=== PATIENT | male | born 1955 | race African-American/Black ===

== ENCOUNTER 2016-10-04 22:00 | Emergency (ER) | payer OTHER, MEDICAID ==
[~2016-10-04] VITALS: Ht 167.6 cm; Wt 99.0 kg
[2016-10-04 23:14] LABS: BASOPHILS % 0.7 % (0.0-2.0); EOSINOPHILS % 2.2 % (0.0-5.0); HEMATOCRIT. 40.9 % (42.0-52.0); HEMOGLOBIN. 13.9 g/dL (14.0-18.0); LYMPHOCYTES % 17.5 % (20.0-50.0); MEAN CORPUSCULAR HEMOGLOBIN 30.5 pg (28.0-32.0); MEAN CORPUSCULAR VOLUME 89.6 fL (80.0-94.0); MEAN PLATELET VOLUME 6.3 fl (7.4-10.4); MONOCYTES % 7.7 % (2.0-8.0); NEUTROPHILS % 71.9 % (40.0-76.0); PLATELET 237 x1000/uL (130-400); RED BLOOD CELL COUNT 4.56 mill/uL (4.7-6.1); RED CELL DISTRIBUTION WIDTH 14.8 % (11.6-14.6); WHITE BLOOD COUNT 11.4 x1000/uL (4.5-11.0)
[2016-10-04 23:17] LABS: CHLORIDE 107 mEq/L (98-107); INDEX HEMOLYSI 1 (1-3); INDEX ICTERIC 1 (1-4); INDEX LIPEMIC 1 (1-3)
[2016-10-04 23:20] LABS: ALBUMIN 3.6 g/dL (3.4-5.0); ANION GAP 14; CALCIUM 8.5 mg/dL (8.5-10.1); CARBON DIOXIDE 26 mEq/L (21-32); PARTIAL THROMBOPLASTIN TIME 26.4 sec (24.0-34.0); PROTHROMBIN TIME 10.8 sec; UREA NITROGEN BLOOD 11 mg/dL (7-21)
[2016-10-04 23:25] LABS: ALANINE AMINOTRANSFERASE 24 IU/L (13-61); eGFR > 60 mL/min (>60)
[2016-10-05 01:34] VITALS: BP 148/86
== END 2016-10-05 01:35 | disposition home or self-care (01) ==
LOC: ER 22:00
DX: R55 Syncope and collapse (principal); I10 Essential (primary) hypertension; F17.200 Nicotine dependence, unspecified, uncomplicated; Z86.73 Personal history of transient ischemic attack (TIA), and cerebral infarction without residual deficits
CPT/HCPCS: 36415; 70450; 71010; 80053; 85025; 85610; 85730; 93005; 99285

== ENCOUNTER 2021-08-08 00:22 | Inpatient (IN) | payer OTHER ==
[~2021-08-08] VITALS: Ht 167.6 cm; Wt 113.4 kg
[2021-08-08 01:38] LABS: HEMATOCRIT 34.7 % (42.0-52.0); HEMOGLOBIN 10.5 g/dL (14.0-18.0); MEAN CORPUSCULAR HEMOGLOBIN 20.7 pg (28.0-32.0); MEAN CORPUSCULAR VOLUME 68.6 fL (80.0-94.0); PLATELET 247 x1000/uL (130-400); RED BLOOD CELL COUNT 5.07 mill/uL (4.7-6.1); RED CELL DISTRIBUTION WIDTH 21.9 % (11.6-14.6)
[2021-08-08] MEDS ORDERED: DEXTROSE 50% WATER 50ML SYRINGE IV ONE (01:45)
[2021-08-08 01:46] LABS: CHLORIDE 103 mEq/L (98-107)
[2021-08-08] MEDS ORDERED: ZOLPIDEM TARTRATE 5MG TABLET PO PRN (06:45)
[2021-08-08] MEDS ORDERED: CLONIDINE 0.1MG TABLET PO PRN (06:45)
[2021-08-08] MEDS ORDERED: ONDANSETRON HCL 4MG/2ML INJ IV PRN (06:45)
[2021-08-08] MEDS ORDERED: DOCUSATE SODIUM 100MG CAPSULE PO PRN (06:45)
[2021-08-08] MEDS ORDERED: ENOXAPARIN 40MG/0.4ML SYR SUBCUT SCH (06:45)
[2021-08-08] MEDS ORDERED: MAGNESIUM/ALUMINUM HYDROXIDE/SIMETHICONE 30ML UDC PO PRN (06:45)
[2021-08-08] MEDS ORDERED: NITROGLYCERIN 0.4MG TABLET SL SL PRN (06:45)
[2021-08-08] MEDS ORDERED: GUAIFENESIN 200MG/10ML SUGAR FREE UDC PO PRN (06:45)
[2021-08-08] MEDS ORDERED: KETOROLAC 30MG/ML VIAL IV PRN (06:45)
[2021-08-08] MEDS ORDERED: ACETAMINOPHEN 325MG TABLET PO PRN ×2 (06:45)
[2021-08-08] MEDS ORDERED: DEXTROSE 50% WATER 50ML SYRINGE IV PRN (07:15)
[2021-08-08 08:12] LABS: *AMPHETAMINES SCREEN URINE NEGATIVE (NEGATIVE); *BARBITURATES SCREEN URINE NEGATIVE (NEGATIVE); *BENZODIAZEPINES SCREEN URINE NEGATIVE (NEGATIVE); *COCAINE SCREEN URINE NEGATIVE (NEGATIVE); CANNABINOID URINE SCREEN NEGATIVE (NEGATIVE); METHADONE URINE SCREEN NEGATIVE (NEGATIVE); OPIATES URINE SCREEN NEGATIVE (NEGATIVE); PHENCYCLIDINE URINE SCREEN NEGATIVE (NEGATIVE)
[2021-08-08 08:34] LABS: T4 FREE 0.95 ng/dL (0.76-1.46)
[2021-08-08] MEDS: ASPIRIN 325MG EC TABLET PO SCH (08:41)
[2021-08-08] MEDS: FAMOTIDINE 20MG TABLET PO SCH ×2 (08:41→20:32)
[2021-08-08] MEDS: ENOXAPARIN 30MG/0.3ML SYR SUBCUT SCH ×2 (09:00→20:33)
[2021-08-08] MEDS: BLOOD SUGAR DIAGNOSTIC STRIP TEST SCH ×3 (11:18→20:31)
[2021-08-08] MEDS: INSULIN LISPRO 100 UNITS/ML SUBCUT SCH ×3 (11:18→20:31)
[2021-08-08] MEDS: IPRATROPIUM/ALBUTEROL 0.5-3(2.5)MG/3ML NEB NEB PRN (11:20)
[2021-08-08 15:00] VITALS: BP 147/72
[2021-08-08 20:00] VITALS: BP 136/73
[2021-08-08] MEDS ORDERED: INSU100C6 SQ ×2 (21:44)
[2021-08-08] MEDS ORDERED: ALBU90AE INH (21:44)
[2021-08-08] MEDS ORDERED: OMEP20CA14 MT (21:44)
[2021-08-08] MEDS ORDERED: AMLO10TA80 MT (21:44)
[2021-08-08] MEDS ORDERED: MOME0.24 INH (21:44)
[2021-08-08] MEDS ORDERED: FLUT15.844 BOTHNSTRLS (21:44)
[2021-08-08] MEDS ORDERED: PIOG15TA68 PO (21:44)
[2021-08-08] MEDS ORDERED: ALBU05 IH (21:44)
[2021-08-08] MEDS: KETOROLAC 15MG/ML VIAL IV PRN (22:27)
[2021-08-09] VITALS: BP 142/73
[2021-08-09 04:00] VITALS: BP 159/75
[2021-08-09] MEDS: KETOROLAC 15MG/ML VIAL IV PRN (05:32)
[2021-08-09] MEDS: BLOOD SUGAR DIAGNOSTIC STRIP TEST SCH ×4 (05:32→21:18)
[2021-08-09] MEDS: INSULIN LISPRO 100 UNITS/ML SUBCUT SCH ×4 (05:32→21:00)
[2021-08-09 06:10] LABS: BASOPHILS % 1.4 % (0.0-2.0); EOSINOPHILS % 5.8 % (0.0-5.0); HEMATOCRIT. 38.1 % (42.0-52.0); HEMOGLOBIN. 11.4 g/dL (14.0-18.0); LYMPHOCYTES % 18.8 % (20.0-50.0); MEAN CORPUSCULAR VOLUME 70.1 fL (80.0-94.0); MEAN PLATELET VOLUME 8.2 fl (7.4-10.4); PLATELET 241 x1000/uL (130-400); RED BLOOD CELL COUNT 5.44 mill/uL (4.7-6.1); RED CELL DISTRIBUTION WIDTH 21.3 % (11.6-14.6)
[2021-08-09 06:35] LABS: CHLORIDE 100 mEq/L (98-107)
[2021-08-09 06:42] LABS: PHOSPHORUS 4.7 mg/dL (2.5-4.9)
[2021-08-09] MEDS ORDERED: DEXTROSE 50% WATER 50ML SYRINGE IV PRN (07:00)
[2021-08-09 08:00] VITALS: BP 119/72
[2021-08-09] MEDS: FAMOTIDINE 20MG TABLET PO SCH ×2 (09:27→21:24)
[2021-08-09] MEDS: ASPIRIN 325MG EC TABLET PO SCH (09:27)
[2021-08-09] MEDS: ENOXAPARIN 30MG/0.3ML SYR SUBCUT SCH ×2 (09:27→21:24)
[2021-08-09] MEDS ORDERED: FUROSEMIDE 40MG/4ML VIAL IVP SCH (14:00)
[2021-08-09 16:00] VITALS: BP 138/75
[2021-08-09] MEDS: SPIRONOLACTONE 25MG TABLET PO SCH (19:13)
[2021-08-09] MEDS: FUROSEMIDE 40MG/4ML VIAL IVP SCH (19:14)
[2021-08-09 20:00] VITALS: BP 115/73
[2021-08-10] VITALS: BP 152/80
[2021-08-10 04:00] VITALS: BP 150/74
[2021-08-10] MEDS: IPRATROPIUM/ALBUTEROL 0.5-3(2.5)MG/3ML NEB NEB PRN (04:52)
[2021-08-10] MEDS: SPIRONOLACTONE 25MG TABLET PO SCH ×2 (05:49→19:50)
[2021-08-10] MEDS: BLOOD SUGAR DIAGNOSTIC STRIP TEST SCH ×4 (05:49→20:59)
[2021-08-10] MEDS: FUROSEMIDE 40MG/4ML VIAL IVP SCH ×2 (05:49→19:49)
[2021-08-10] MEDS: INSULIN LISPRO 100 UNITS/ML SUBCUT SCH ×4 (05:50→20:58)
[2021-08-10 07:32] LABS: CHLORIDE 95 mEq/L (98-107)
[2021-08-10 07:40] LABS: BASOPHILS % 0.8 % (0.0-2.0); EOSINOPHILS % 6.8 % (0.0-5.0); HEMATOCRIT. 34.9 % (42.0-52.0); HEMOGLOBIN. 10.6 g/dL (14.0-18.0); LYMPHOCYTES % 14.4 % (20.0-50.0); MEAN CORPUSCULAR HEMOGLOBIN 21.1 pg (28.0-32.0); MEAN CORPUSCULAR VOLUME 69.1 fL (80.0-94.0); MEAN PLATELET VOLUME 8.2 fl (7.4-10.4); MONOCYTES % 11.5 % (2.0-8.0); NEUTROPHILS % 66.5 % (40.0-76.0); PLATELET 261 x1000/uL (130-400); RED BLOOD CELL COUNT 5.05 mill/uL (4.7-6.1); RED CELL DISTRIBUTION WIDTH 21.2 % (11.6-14.6)
[2021-08-10 07:41] LABS: PHOSPHORUS 4.6 mg/dL (2.5-4.9)
[2021-08-10 08:00] VITALS: BP 155/79
[2021-08-10] MEDS: ENOXAPARIN 30MG/0.3ML SYR SUBCUT SCH ×2 (11:22→20:58)
[2021-08-10] MEDS: ASPIRIN 325MG EC TABLET PO SCH (11:22)
[2021-08-10] MEDS: FAMOTIDINE 20MG TABLET PO SCH ×2 (11:22→20:58)
[2021-08-10 12:00] VITALS: BP 135/71
[2021-08-10 14:03] LABS: PLATELET ESTIMATE NORMAL
[2021-08-10 16:00] VITALS: BP 140/74
[2021-08-10 20:20] VITALS: BP 125/65
[2021-08-10] MEDS: KETOROLAC 15MG/ML VIAL IV PRN (20:57)
[2021-08-11 00:01] VITALS: BP 127/65
[2021-08-11] MEDS: SPIRONOLACTONE 25MG TABLET PO SCH (05:39)
[2021-08-11] MEDS: FUROSEMIDE 40MG/4ML VIAL IVP SCH (05:39)
[2021-08-11] MEDS: INSULIN LISPRO 100 UNITS/ML SUBCUT SCH (06:29)
[2021-08-11] MEDS: BLOOD SUGAR DIAGNOSTIC STRIP TEST SCH (06:29)
[2021-08-11 06:35] VITALS: BP 167/97
[2021-08-11 08:00] VITALS: BP 141/70
[2021-08-11] MEDS: FAMOTIDINE 20MG TABLET PO SCH (10:35)
[2021-08-11] MEDS: ENOXAPARIN 30MG/0.3ML SYR SUBCUT SCH (10:35)
[2021-08-11] MEDS: ASPIRIN 325MG EC TABLET PO SCH (10:35)
[2021-08-11 12:23] VITALS: BP 132/74
[2021-08-13 16:15] LABS: FOLIC ACID (FOLATE) SERUM 5.2 ng/mL (>5.38)
== END 2021-08-11 13:16 | disposition home or self-care (01) | DRG 622 ==
LOC: ER 00:22 → MICUSO 03:10 → 8WST 14:28
PROVIDERS: ADMIT Internal Medicine; ATTEND Internal Medicine
PROC: 0JBP0ZZ Excision of Left Lower Leg Subcutaneous Tissue and Fascia, Open Approach (ICD-10-PCS; principal; 2021-08-11)
PROC: 0JBN0ZZ Excision of Right Lower Leg Subcutaneous Tissue and Fascia, Open Approach (ICD-10-PCS; 2021-08-11)
DX: E11.649 Type 2 diabetes mellitus with hypoglycemia without coma (principal); G93.41 Metabolic encephalopathy; E44.0 Moderate protein-calorie malnutrition; Z68.41 Body mass index [BMI] 40.0-44.9, adult; I87.8 Other specified disorders of veins; Z86.73 Personal history of transient ischemic attack (TIA), and cerebral infarction without residual deficits; I10 Essential (primary) hypertension; D63.8 Anemia in other chronic diseases classified elsewhere; E66.9 Obesity, unspecified; E87.6 Hypokalemia; Z20.822 Contact with and (suspected) exposure to COVID-19; I50.9 Heart failure, unspecified; I11.0 Hypertensive heart disease with heart failure; Z79.4 Long term (current) use of insulin; Z88.8 Allergy status to other drugs, medicaments and biological substances
CPT/HCPCS: 36415; 71045; 80053; 80061; 80305; 82607; 82746; 82962; 83036; 83540; 83550; 83735; 83880; 84100; 84145; 84439; 84443; 85025; 85027; 87426; 93306; 93923; 93970; 94640; 97162; 97166; 99285; J1650; J1815; J1885; J1940

== ENCOUNTER 2022-04-11 01:34 | Inpatient (IN) | payer OTHER ==
[~2022-04-11] VITALS: Ht 167.6 cm; Wt 119.3 kg
[2022-04-11] VITALS (9 sets, daily range): BP systolic 142–167; BP diastolic 75–95
[~2022-04-11 01:34] MED LIST: ALBU05 IH; ALBU90AE INH; AMLO10TA80 MT; ATOR-2 PO; FLUT15.844 BOTHNSTRLS; HYDR25TA PO; INSU100C6 SQ; KETO5DRO7 OP; LOSA100T32 PO; MOME220A4 INH; OLOD4MIS2 IH; OMEP20CA14 MT; PIOG15TA68 PO
[2022-04-11] MEDS ORDERED: MAGNESIUM 2 G PREMIX 50 ML IV STA (01:38)
[2022-04-11] MEDS ORDERED: IPRATROPIUM BROMIDE (0.02%) 0.5MG/2.5ML NEB HHN STA (01:38)
[2022-04-11] MEDS ORDERED: METHYLPREDNISOLONE SOD SUCC 125 MG/2 ML VIAL IV STA (01:38)
[2022-04-11] MEDS ORDERED: ALBUTEROL (0.083%) 2.5MG/3ML NEB HHN STA (01:38)
[2022-04-11 02:11] LABS: HEMATOCRIT. 40.1 % (42.0-52.0); HEMOGLOBIN. 12.6 g/dL (14.0-18.0); MEAN CORPUSCULAR HEMOGLOBIN 23.7 pg (28.0-32.0); MEAN CORPUSCULAR VOLUME 75.5 fL (80.0-94.0); MEAN PLATELET VOLUME 6.8 fl (7.4-10.4); PLATELET 325 x1000/uL (130-400); RED BLOOD CELL COUNT 5.31 mill/uL (4.7-6.1); RED CELL DISTRIBUTION WIDTH 18.3 % (11.6-14.6)
[2022-04-11 05:37] LABS: CHLORIDE 94 mEq/L (98-107)
[2022-04-11 06:01] LABS: PLATELET ESTIMATE NORMAL
[2022-04-11 07:59] LABS: BG BASE EXCESS 4.5 mmol/L (-2.0-2.0); BG CARBOXYHEMOGLOBIN 1.4 % (0.5-1.5); BG DEOXYHEMOGLOBIN 2.2 % (0.0-5.0); BG METHEMOGLOBIN 0.3 % (0.0-1.5); BG OXYGEN SATURATION 97.8 % (92.0-98.5); BG OXYHEMOGLOBIN 96.1 % (94.0-97.0); BG PCO2 119.5 mmHg (35.0-45.0); BG PO2 122.9 mmHg (75.0-100.0); BG SAMPLE SITE RIGHT BRACHIAL; BG TOTAL HEMOGLOBIN 13.6 g/dL (12.0-18.0); BG VENT MODE MASK - BIPAP
[2022-04-11] MEDS ORDERED: IPRATROPIUM/ALBUTEROL 0.5-3(2.5)MG/3ML NEB HHN PRN (08:15)
[2022-04-11] MEDS ORDERED: METHYLPREDNISOLONE SOD SUCC 125 MG/2 ML VIAL IV NR (08:30)
[2022-04-11] MEDS: IPRATROPIUM/ALBUTEROL 0.5-3(2.5)MG/3ML NEB HHN SCH ×4 (08:42→23:52)
[2022-04-11 09:54] LABS: BG BASE EXCESS -2.1 mmol/L (-2.0-2.0); BG CARBOXYHEMOGLOBIN 1.1 % (0.5-1.5); BG DEOXYHEMOGLOBIN 1.1 % (0.0-5.0); BG FRACTION INSPIRED OXYGEN 40; BG HCO3 ACT 26.2 mmol/L (22.0-26.0); BG METHEMOGLOBIN 0.1 % (0.0-1.5); BG OXYGEN SATURATION 98.9 % (92.0-98.5); BG OXYHEMOGLOBIN 97.7 % (94.0-97.0); BG PCO2 60.8 mmHg (35.0-45.0); BG PH 7.252 (7.350-7.450); BG PO2 154.9 mmHg (75.0-100.0); BG SAMPLE SITE RIGHT BRACHIAL; BG TOTAL HEMOGLOBIN 13.3 g/dL (12.0-18.0); BG VENT MODE MASK - BIPAP
[2022-04-11] MEDS: METHYLPREDNISOLONE SOD SUCC 125 MG/2 ML VIAL IV SCH ×3 (13:35→21:04)
[2022-04-11] MEDS ORDERED: MAGNESIUM/ALUMINUM HYDROXIDE/SIMETHICONE 30ML UDC PO PRN (15:00)
[2022-04-11] MEDS ORDERED: ACETAMINOPHEN 325MG TABLET PO PRN (15:00)
[2022-04-11] MEDS ORDERED: ONDANSETRON HCL 4MG/2ML INJ IV PRN (15:00)
[2022-04-11] MEDS ORDERED: DEXTROSE 50% WATER 50ML SYRINGE IV PRN ×2 (15:00)
[2022-04-11] MEDS ORDERED: DIPHENHYDRAMINE 25MG CAPSULE PO PRN (15:00)
[2022-04-11] MEDS ORDERED: DOCUSATE SODIUM 100MG CAPSULE PO PRN (15:00)
[2022-04-11] MEDS ORDERED: HYDROCODONE/ACETAMINOPHEN 5/325MG TABLET PO PRN (15:00)
[2022-04-11] MEDS ORDERED: CLONIDINE 0.1MG TABLET PO PRN (15:00)
[2022-04-11] MEDS: AMLODIPINE 10MG TABLET PO SCH (15:46)
[2022-04-11] MEDS: ENOXAPARIN 40MG/0.4ML SYR SUBCUT SCH (15:46)
[2022-04-11] MEDS: BLOOD SUGAR DIAGNOSTIC STRIP TEST SCH ×2 (17:30→21:03)
[2022-04-11] MEDS: INSULIN LISPRO 100 UNITS/ML SUBCUT SCH ×2 (17:39→21:04)
[2022-04-11] MEDS: GUAIFENESIN 600MG ER TABLET PO SCH (21:03)
[2022-04-11] MEDS: ATORVASTATIN CALCIUM 40MG TABLET PO SCH (21:03)
[2022-04-11 21:59] LABS: CLARITY URINE CLEAR (CLEAR); COLOR URINE YELLOW (YELLOW); KETONES URINE TRACE (NEGATIVE); LEUKOCYTE ESTERASE URINE NEGATIVE (NEGATIVE); NITRITE URINE NEGATIVE (NEGATIVE); OCCULT BLOOD URINE NEGATIVE (NEGATIVE); PH URINE 6.5 (4.5-8.0); PROTEIN URINE TRACE (NEGATIVE); SPECIFIC GRAVITY URINE 1.015 (1.005-1.030)
[2022-04-11 22:27] LABS: *AMPHETAMINES SCREEN URINE NEGATIVE (NEGATIVE); *BARBITURATES SCREEN URINE NEGATIVE (NEGATIVE); *BENZODIAZEPINES SCREEN URINE NEGATIVE (NEGATIVE); *COCAINE SCREEN URINE NEGATIVE (NEGATIVE); CANNABINOID URINE SCREEN NEGATIVE (NEGATIVE); METHADONE URINE SCREEN NEGATIVE (NEGATIVE); OPIATES URINE SCREEN NEGATIVE (NEGATIVE); PHENCYCLIDINE URINE SCREEN NEGATIVE (NEGATIVE)
[2022-04-12] VITALS (20 sets, daily range): BP systolic 123–164; BP diastolic 69–139
[2022-04-12] MEDS: IPRATROPIUM/ALBUTEROL 0.5-3(2.5)MG/3ML NEB HHN SCH ×5 (03:58→20:32)
[2022-04-12] MEDS: METHYLPREDNISOLONE SOD SUCC 125 MG/2 ML VIAL IV SCH ×3 (06:00→21:19)
[2022-04-12] MEDS: ENOXAPARIN 40MG/0.4ML SYR SUBCUT SCH (06:05)
[2022-04-12 06:40] LABS: HEMATOCRIT. 33.7 % (42.0-52.0); HEMOGLOBIN. 10.5 g/dL (14.0-18.0); MEAN CORPUSCULAR HEMOGLOBIN 23.5 pg (28.0-32.0); MEAN CORPUSCULAR VOLUME 75.4 fL (80.0-94.0); MEAN PLATELET VOLUME 6.9 fl (7.4-10.4); PLATELET 262 x1000/uL (130-400); RED BLOOD CELL COUNT 4.47 mill/uL (4.7-6.1); RED CELL DISTRIBUTION WIDTH 17.8 % (11.6-14.6)
[2022-04-12] MEDS: BLOOD SUGAR DIAGNOSTIC STRIP TEST SCH ×4 (07:21→20:25)
[2022-04-12 07:52] LABS: CHLORIDE 97 mEq/L (98-107)
[2022-04-12] MEDS: INSULIN LISPRO 100 UNITS/ML SUBCUT SCH ×4 (08:00→20:25)
[2022-04-12 08:06] LABS: HDL CHOLESTEROL 44 mg/dL (40-59); LDL CHOLESTEROL 50 mg/dL (5-100); PHOSPHORUS 2.6 mg/dL (2.5-4.9); T4 FREE 1.09 ng/dL (0.76-1.46)
[2022-04-12] MEDS: GUAIFENESIN 200MG/10ML SUGAR FREE UDC PO PRN (09:03)
[2022-04-12] MEDS: HYDROCHLOROTHIAZIDE 25MG TABLET PO SCH (09:03)
[2022-04-12] MEDS: OMEPRAZOLE 20MG CAPSULE EXTENDED RELEASE PO SCH (09:03)
[2022-04-12] MEDS: AMLODIPINE 10MG TABLET PO SCH (09:03)
[2022-04-12] MEDS: GUAIFENESIN 600MG ER TABLET PO SCH ×2 (09:10→20:25)
[2022-04-12] MEDS: PIOGLITAZONE 15MG TABLET PO SCH (09:11)
[2022-04-12 09:22] LABS: BG BASE EXCESS 7.9 mmol/L (-2.0-2.0); BG CARBOXYHEMOGLOBIN 0.9 % (0.5-1.5); BG DEOXYHEMOGLOBIN 1.2 % (0.0-5.0); BG FRACTION INSPIRED OXYGEN 40; BG HCO3 ACT 35.4 mmol/L (22.0-26.0); BG METHEMOGLOBIN 0.2 % (0.0-1.5); BG OXYGEN SATURATION 98.8 % (92.0-98.5); BG OXYHEMOGLOBIN 97.7 % (94.0-97.0); BG PCO2 65.5 mmHg (35.0-45.0); BG PH 7.351 (7.350-7.450); BG PO2 140.1 mmHg (75.0-100.0); BG SAMPLE SITE LEFT RADIAL; BG TOTAL HEMOGLOBIN 11.9 g/dL (12.0-18.0); BG TOTAL RESPIRATORY RATE 30 b/min; BG VENT MODE MASK - BIPAP
[2022-04-12 13:54] LABS: PLATELET ESTIMATE NORMAL
[2022-04-12] MEDS: LOSARTAN POTASSIUM 100 MG TABLET PO SCH (14:15)
[2022-04-12] MEDS ORDERED: MORPHINE SULFATE 2 MG/ML CPJ (NOT FOR IM USE) IV PRN (15:45)
[2022-04-12] MEDS ORDERED: NALOXONE HCL 0.4MG/ML VIAL IV PRN (16:00)
[2022-04-12] MEDS: LIDOCAINE 5% PATCH TOP SCH (16:40)
[2022-04-12] MEDS: ENOXAPARIN 30MG/0.3ML SYR SUBCUT SCH (18:00)
[2022-04-12] MEDS: ATORVASTATIN CALCIUM 40MG TABLET PO SCH (20:25)
[2022-04-12] MEDS: METOCLOPRAMIDE HCL 10MG/2ML VIAL IV SCH (21:20)
[2022-04-13] VITALS (13 sets, daily range): BP systolic 130–154; BP diastolic 50–91
[2022-04-13] MEDS: IPRATROPIUM/ALBUTEROL 0.5-3(2.5)MG/3ML NEB HHN SCH ×6 (00:42→20:19)
[2022-04-13] MEDS: METOCLOPRAMIDE HCL 10MG/2ML VIAL IV SCH ×3 (04:58→20:31)
[2022-04-13] MEDS: ENOXAPARIN 30MG/0.3ML SYR SUBCUT SCH ×2 (04:59→17:07)
[2022-04-13] MEDS: METHYLPREDNISOLONE SOD SUCC 125 MG/2 ML VIAL IV SCH ×3 (04:59→20:31)
[2022-04-13] MEDS: INSULIN LISPRO 100 UNITS/ML SUBCUT SCH ×5 (08:00→20:30)
[2022-04-13] MEDS: BLOOD SUGAR DIAGNOSTIC STRIP TEST SCH ×4 (08:08→20:21)
[2022-04-13 08:15] LABS: HEMATOCRIT. 35.6 % (42.0-52.0); MEAN CORPUSCULAR HEMOGLOBIN 23.3 pg (28.0-32.0); MEAN CORPUSCULAR VOLUME 75.7 fL (80.0-94.0); MEAN PLATELET VOLUME 6.9 fl (7.4-10.4); PLATELET 284 x1000/uL (130-400); RED CELL DISTRIBUTION WIDTH 18.1 % (11.6-14.6)
[2022-04-13] MEDS: PIOGLITAZONE 15MG TABLET PO SCH (08:42)
[2022-04-13] MEDS: GUAIFENESIN 600MG ER TABLET PO SCH ×2 (08:42→20:31)
[2022-04-13] MEDS: AMLODIPINE 10MG TABLET PO SCH (08:43)
[2022-04-13] MEDS: LOSARTAN POTASSIUM 100 MG TABLET PO SCH (08:43)
[2022-04-13] MEDS: HYDROCHLOROTHIAZIDE 25MG TABLET PO SCH (08:43)
[2022-04-13] MEDS: OMEPRAZOLE 20MG CAPSULE EXTENDED RELEASE PO SCH (08:43)
[2022-04-13] MEDS: LIDOCAINE 5% PATCH TOP SCH (08:45)
[2022-04-13 10:36] LABS: CHLORIDE 94 mEq/L (98-107)
[2022-04-13 10:57] LABS: PLATELET ESTIMATE NORMAL
[2022-04-13] MEDS ORDERED: LACTULOSE 20G/30ML UDC PO SCH (12:00)
[2022-04-13] MEDS: ATORVASTATIN CALCIUM 40MG TABLET PO SCH (20:31)
[2022-04-13] MEDS: GUAIFENESIN 200MG/10ML SUGAR FREE UDC PO PRN (20:33)
[2022-04-13] MEDS ORDERED: LOPERAMIDE HCL 2MG CAPSULE PO PRN (21:30)
[2022-04-14] VITALS (8 sets, daily range): BP systolic 140–157; BP diastolic 74–90
[2022-04-14] MEDS: IPRATROPIUM/ALBUTEROL 0.5-3(2.5)MG/3ML NEB HHN SCH ×4 (00:44→12:46)
[2022-04-14] MEDS: METHYLPREDNISOLONE SOD SUCC 125 MG/2 ML VIAL IV SCH (05:10)
[2022-04-14] MEDS: ENOXAPARIN 30MG/0.3ML SYR SUBCUT SCH (05:11)
[2022-04-14] MEDS: METOCLOPRAMIDE HCL 10MG/2ML VIAL IV SCH ×2 (05:11→14:00)
[2022-04-14] MEDS: BLOOD SUGAR DIAGNOSTIC STRIP TEST SCH ×2 (07:35→12:07)
[2022-04-14] MEDS: INSULIN LISPRO 100 UNITS/ML SUBCUT SCH ×2 (07:35→12:17)
[2022-04-14] MEDS: OMEPRAZOLE 20MG CAPSULE EXTENDED RELEASE PO SCH (08:27)
[2022-04-14] MEDS: HYDROCHLOROTHIAZIDE 25MG TABLET PO SCH (08:27)
[2022-04-14] MEDS: AMLODIPINE 10MG TABLET PO SCH (08:27)
[2022-04-14] MEDS: PIOGLITAZONE 15MG TABLET PO SCH (08:27)
[2022-04-14] MEDS: LOSARTAN POTASSIUM 100 MG TABLET PO SCH (08:27)
[2022-04-14] MEDS: GUAIFENESIN 600MG ER TABLET PO SCH (08:27)
[2022-04-14] MEDS: LIDOCAINE 5% PATCH TOP SCH (08:28)
[2022-04-14 10:24] LABS: BG BASE EXCESS 12.2 mmol/L (-2.0-2.0); BG CARBOXYHEMOGLOBIN 1.2 % (0.5-1.5); BG METHEMOGLOBIN 0.1 % (0.0-1.5); BG OXYGEN SATURATION 92.9 % (92.0-98.5); BG OXYHEMOGLOBIN 91.7 % (94.0-97.0); BG PCO2 54.3 mmHg (35.0-45.0); BG PH 7.463 (7.350-7.450); BG PO2 63.5 mmHg (75.0-100.0); BG SAMPLE SITE RIGHT RADIAL; BG TOTAL HEMOGLOBIN 12.8 g/dL (12.0-18.0); BG VENT MODE NASAL CANNULA
[2022-04-14] MEDS ORDERED: TERBUTALINE SULFATE 1MG/ML VIAL SUBCUT NR (11:00)
[2022-04-14] MEDS ORDERED: ALBU90AE INH (13:07)
[2022-04-14] MEDS ORDERED: METO5TAB86 MT (13:07)
[2022-04-14] MEDS ORDERED: MED4 MT (13:07)
[2022-04-14] MEDS ORDERED: METHYLPREDNISOLONE SOD SUCC 40 MG/ML VIAL IV SCH (17:00)
== END 2022-04-14 16:00 | disposition home health service (06) | DRG 189 ==
LOC: ER 01:34 → 5EST 02:49 → ENRESERV 06:07
PROVIDERS: ADMIT Internal Medicine; ATTEND Internal Medicine
PROC: 5A09457 Assistance with Respiratory Ventilation, 24-96 Consecutive Hours, Continuous Positive Airway Pressure (ICD-10-PCS; principal; 2022-04-11)
PROC: 5A09357 Assistance with Respiratory Ventilation, Less than 24 Consecutive Hours, Continuous Positive Airway Pressure (ICD-10-PCS; 2022-04-12)
PROC: 5A09357 Assistance with Respiratory Ventilation, Less than 24 Consecutive Hours, Continuous Positive Airway Pressure (ICD-10-PCS; 2022-04-14)
DX: J96.22 Acute and chronic respiratory failure with hypercapnia (principal); J44.1 Chronic obstructive pulmonary disease with (acute) exacerbation; E44.1 Mild protein-calorie malnutrition; Z68.41 Body mass index [BMI] 40.0-44.9, adult; E87.29 Other acidosis; I50.32 Chronic diastolic (congestive) heart failure; C34.31 Malignant neoplasm of lower lobe, right bronchus or lung; L97.919 Non-pressure chronic ulcer of unspecified part of right lower leg with unspecified severity; Z20.822 Contact with and (suspected) exposure to COVID-19; D64.9 Anemia, unspecified; E66.9 Obesity, unspecified; M48.02 Spinal stenosis, cervical region; I73.9 Peripheral vascular disease, unspecified; E78.5 Hyperlipidemia, unspecified; I87.8 Other specified disorders of veins; E11.51 Type 2 diabetes mellitus with diabetic peripheral angiopathy without gangrene; R59.0 Localized enlarged lymph nodes; I11.0 Hypertensive heart disease with heart failure; Z88.8 Allergy status to other drugs, medicaments and biological substances; Z86.73 Personal history of transient ischemic attack (TIA), and cerebral infarction without residual deficits; Z87.891 Personal history of nicotine dependence; Z99.81 Dependence on supplemental oxygen; I83.009 Varicose veins of unspecified lower extremity with ulcer of unspecified site
CPT/HCPCS: 36415; 36600; 71045; 74018; 80048; 80053; 80061; 80305; 81003; 82375; 82805; 82962; 83036; 83735; 83880; 84100; 84439; 84443; 84484; 85025; 87070; 87426; 93005; 93923; 93970; 94640; 94644; 94660; 97162; 99291; C9803; J1650; J1815; J2270; J2405; J2765; J2930; J3105; J3475

== ENCOUNTER 2022-08-18 06:56 | Inpatient (IN) | payer OTHER ==
[~2022-08-18] VITALS: Ht 177.8 cm; Wt 102.1 kg
[~2022-08-18 06:56] MED LIST changes: +MED4 MT; +METO5TAB86 MT
[2022-08-18] MEDS ORDERED: ALBUTEROL (0.083%) 2.5MG/3ML NEB HHN STA (07:18)
[2022-08-18] MEDS ORDERED: IPRATROPIUM BROMIDE (0.02%) 0.5MG/2.5ML NEB HHN STA (07:18)
[2022-08-18 07:43] LABS: HEMATOCRIT. 32.8 % (42.0-52.0); MEAN CORPUSCULAR HEMOGLOBIN 22.1 pg (28.0-32.0); MEAN CORPUSCULAR VOLUME 72.5 fL (80.0-94.0); MEAN PLATELET VOLUME 6.9 fl (7.4-10.4); PLATELET 275 x1000/uL (130-400); RED BLOOD CELL COUNT 4.52 mill/uL (4.7-6.1); RED CELL DISTRIBUTION WIDTH 20.3 % (11.6-14.6)
[2022-08-18 07:51] LABS: INR 1.3; PROTHROMBIN TIME 13.6 sec (9.6-11.0)
[2022-08-18 08:06] LABS: CHLORIDE 93 mEq/L (98-107)
[2022-08-18] MEDS ORDERED: KCL 20MEQ/100ML PREMIX 100 ML IV ONE (08:45)
[2022-08-18 09:21] LABS: PLATELET ESTIMATE NORMAL
[2022-08-18] MEDS ORDERED: FUROSEMIDE 20MG/2ML VIAL IVP ONE (09:45)
[2022-08-18] MEDS ORDERED: METHYLPREDNISOLONE SOD SUCC 125 MG/2 ML VIAL IV STA (09:45)
[2022-08-18] MEDS ORDERED: MAGNESIUM 2 G PREMIX 50 ML IV STA (09:45)
[2022-08-18 11:39] LABS: BG BASE EXCESS 19.2 mmol/L (-2.0-2.0); BG DEOXYHEMOGLOBIN 2.3 % (0.0-5.0); BG FRACTION INSPIRED OXYGEN 40; BG HCO3 ACT 47.9 mmol/L (22.0-26.0); BG METHEMOGLOBIN 0.3 % (0.0-1.5); BG OXYGEN SATURATION 97.7 % (92.0-98.5); BG OXYHEMOGLOBIN 96.4 % (94.0-97.0); BG PCO2 82.6 mmHg (35.0-45.0); BG PH 7.381 (7.350-7.450); BG PO2 106.7 mmHg (75.0-100.0); BG SAMPLE SITE RIGHT RADIAL; BG TOTAL HEMOGLOBIN 10.9 g/dL (12.0-18.0); BG TOTAL RESPIRATORY RATE 23 b/min; BG VENT MODE MASK - BIPAP
[2022-08-18] MEDS ORDERED: FUROSEMIDE 40MG/4ML VIAL IVP NR (11:45)
[2022-08-18] MEDS ORDERED: METHYLPREDNISOLONE SOD SUCC 125 MG/2 ML VIAL IV NR (11:45)
[2022-08-18] MEDS ORDERED: IPRATROPIUM/ALBUTEROL 0.5-3(2.5)MG/3ML NEB HHN PRN (12:15)
[2022-08-18] MEDS ORDERED: AZITHROMYCIN 500MG/250ML 250 ML IV SCH (13:00)
[2022-08-18] MEDS ORDERED: DEXTROSE 50% WATER 50ML SYRINGE IV PRN (13:30)
[2022-08-18] MEDS: ASPIRIN 81MG TABLET PO SCH (13:30)
[2022-08-18 13:44] LABS: PHOSPHORUS 2.6 mg/dL (2.5-4.9)
[2022-08-18] MEDS: AMLODIPINE 5MG TABLET PO SCH (14:35)
[2022-08-18] MEDS: LOSARTAN POTASSIUM 50 MG TABLET PO SCH (14:35)
[2022-08-18] MEDS ORDERED: MAGNESIUM/ALUMINUM HYDROXIDE/SIMETHICONE 30ML UDC PO PRN (15:30)
[2022-08-18] MEDS ORDERED: GUAIFENESIN 200MG/10ML SUGAR FREE UDC PO PRN (15:30)
[2022-08-18] MEDS ORDERED: ONDANSETRON HCL 4MG/2ML INJ IV PRN (15:30)
[2022-08-18] MEDS ORDERED: CLONIDINE 0.1MG TABLET PO PRN (15:30)
[2022-08-18] MEDS ORDERED: NA PHOS,M-B/NA PHOS,DI-BA ENEMA 118ML PR PRN (15:30)
[2022-08-18] MEDS ORDERED: DOCUSATE SODIUM 100MG CAPSULE PO PRN (15:30)
[2022-08-18] MEDS ORDERED: ACETAMINOPHEN 325MG TABLET PO PRN ×2 (15:30)
[2022-08-18] MEDS ORDERED: KCL 20MEQ/100ML PREMIX 100 ML IV SCH (16:00)
[2022-08-18 17:16] LABS: T4 FREE 1.56 ng/dL (0.76-1.46)
[2022-08-18 17:57] LABS: FOLIC ACID (FOLATE) SERUM 6.2 ng/mL (>5.38)
[2022-08-18] MEDS ORDERED: DEXT 5%/0.45% NACL 1000ML 1,000 ML IV SCH (18:15)
[2022-08-18 20:00] VITALS: BP 151/92
[2022-08-18] MEDS: KCL 20MEQ/100ML PREMIX 100 ML IV SCH ×2 (21:17→23:14)
[2022-08-18] MEDS: ATORVASTATIN CALCIUM 40MG TABLET PO SCH (21:17)
[2022-08-18] MEDS: BLOOD SUGAR DIAGNOSTIC STRIP TEST SCH (21:18)
[2022-08-18] MEDS: INSULIN LISPRO 100 UNITS/ML SUBCUT SCH (21:18)
[2022-08-18] MEDS: METHYLPREDNISOLONE SOD SUCC 40 MG/ML VIAL IV SCH (21:18)
[2022-08-18 22:00] VITALS: BP 163/75
[2022-08-18 22:42] VITALS: BP 149/80
[2022-08-18 23:40] VITALS: BP 133/82
[2022-08-19] VITALS (11 sets, daily range): BP systolic 90–164; BP diastolic 50–93
[2022-08-19] MEDS: ENOXAPARIN 30MG/0.3ML SYR SUBCUT SCH ×2 (05:04→17:22)
[2022-08-19] MEDS: METHYLPREDNISOLONE SOD SUCC 40 MG/ML VIAL IV SCH ×3 (05:04→17:22)
[2022-08-19 07:11] LABS: HEMATOCRIT. 31.7 % (42.0-52.0); HEMOGLOBIN. 9.8 g/dL (14.0-18.0); MEAN CORPUSCULAR HEMOGLOBIN 22.4 pg (28.0-32.0); MEAN CORPUSCULAR VOLUME 72.3 fL (80.0-94.0); MEAN PLATELET VOLUME 6.8 fl (7.4-10.4); PLATELET 265 x1000/uL (130-400); RED BLOOD CELL COUNT 4.39 mill/uL (4.7-6.1); RED CELL DISTRIBUTION WIDTH 19.8 % (11.6-14.6)
[2022-08-19] MEDS: BLOOD SUGAR DIAGNOSTIC STRIP TEST SCH ×4 (07:30→20:42)
[2022-08-19 07:42] LABS: CHLORIDE 93 mEq/L (98-107)
[2022-08-19] MEDS: INSULIN LISPRO 100 UNITS/ML SUBCUT SCH ×4 (08:00→20:42)
[2022-08-19 08:39] LABS: HDL CHOLESTEROL 41 mg/dL (40-59); LDL CHOLESTEROL 54 mg/dL (5-100); PHOSPHORUS 3.4 mg/dL (2.5-4.9)
[2022-08-19] MEDS: ASPIRIN 81MG TABLET PO SCH (09:03)
[2022-08-19] MEDS: PIOGLITAZONE 15MG TABLET PO SCH (09:03)
[2022-08-19] MEDS: FAMOTIDINE 20MG TABLET PO SCH (09:03)
[2022-08-19] MEDS: LOSARTAN POTASSIUM 50 MG TABLET PO SCH (09:03)
[2022-08-19] MEDS: AMLODIPINE 5MG TABLET PO SCH (09:04)
[2022-08-19] MEDS ORDERED: ALBUTEROL (0.083%) 2.5MG/3ML NEB HHN PRN (10:15)
[2022-08-19] MEDS ORDERED: IPRATROPIUM BROMIDE (0.02%) 0.5MG/2.5ML NEB HHN PRN (10:15)
[2022-08-19 11:09] LABS: BG BASE EXCESS 16.1 mmol/L (-2.0-2.0); BG CARBOXYHEMOGLOBIN 0.8 % (0.5-1.5); BG DEOXYHEMOGLOBIN 5.5 % (0.0-5.0); BG FRACTION INSPIRED OXYGEN 32; BG HCO3 ACT 42.4 mmol/L (22.0-26.0); BG METHEMOGLOBIN 0.3 % (0.0-1.5); BG OXYGEN SATURATION 94.4 % (92.0-98.5); BG OXYHEMOGLOBIN 93.4 % (94.0-97.0); BG PCO2 61.6 mmHg (35.0-45.0); BG PH 7.456 (7.350-7.450); BG PO2 70.4 mmHg (75.0-100.0); BG SAMPLE SITE RIGHT RADIAL; BG TOTAL HEMOGLOBIN 10.8 g/dL (12.0-18.0); BG VENT MODE NASAL CANNULA
[2022-08-19 11:30] LABS: PLATELET ESTIMATE NORMAL
[2022-08-19] MEDS: ALBUTEROL (0.083%) 2.5MG/3ML NEB HHN SCH ×2 (11:57→20:41)
[2022-08-19] MEDS ORDERED: IPRATROPIUM/ALBUTEROL 0.5-3(2.5)MG/3ML NEB HHN SCH (12:00)
[2022-08-19] MEDS: CEFTRIAXONE 1,000 MG in DEXTROSE 5% WATER 50 ML IV SCH (12:23)
[2022-08-19] MEDS: AZITHROMYCIN 500MG/250ML 250 ML IV SCH (16:39)
[2022-08-19] MEDS: IPRATROPIUM BROMIDE (0.02%) 0.5MG/2.5ML NEB HHN SCH (20:41)
[2022-08-19] MEDS: BUDESONIDE 0.5MG/2ML NEB HHN SCH (20:42)
[2022-08-19] MEDS: ATORVASTATIN CALCIUM 40MG TABLET PO SCH (20:44)
[2022-08-20] VITALS (12 sets, daily range): BP systolic 106–133; BP diastolic 56–91
[2022-08-20] MEDS: METHYLPREDNISOLONE SOD SUCC 40 MG/ML VIAL IV SCH ×4 (00:41→17:53)
[2022-08-20] MEDS: ALBUTEROL (0.083%) 2.5MG/3ML NEB HHN SCH ×4 (01:09→20:39)
[2022-08-20] MEDS: IPRATROPIUM BROMIDE (0.02%) 0.5MG/2.5ML NEB HHN SCH ×4 (01:09→20:39)
[2022-08-20] MEDS: ENOXAPARIN 30MG/0.3ML SYR SUBCUT SCH ×2 (05:24→17:53)
[2022-08-20 07:27] LABS: HEMATOCRIT. 31.1 % (42.0-52.0); HEMOGLOBIN. 9.3 g/dL (14.0-18.0); MEAN CORPUSCULAR HEMOGLOBIN 21.8 pg (28.0-32.0); MEAN CORPUSCULAR VOLUME 72.9 fL (80.0-94.0); MEAN PLATELET VOLUME 7.1 fl (7.4-10.4); PLATELET 268 x1000/uL (130-400); RED BLOOD CELL COUNT 4.26 mill/uL (4.7-6.1); RED CELL DISTRIBUTION WIDTH 20.4 % (11.6-14.6)
[2022-08-20] MEDS: BLOOD SUGAR DIAGNOSTIC STRIP TEST SCH ×4 (07:59→21:00)
[2022-08-20] MEDS: INSULIN LISPRO 100 UNITS/ML SUBCUT SCH ×4 (07:59→22:03)
[2022-08-20] MEDS: BUDESONIDE 0.5MG/2ML NEB HHN SCH (08:19)
[2022-08-20 08:31] LABS: CHLORIDE 93 mEq/L (98-107)
[2022-08-20 08:47] LABS: PHOSPHORUS 3.5 mg/dL (2.5-4.9)
[2022-08-20] MEDS: AMLODIPINE 5MG TABLET PO SCH (09:48)
[2022-08-20] MEDS: ASPIRIN 81MG TABLET PO SCH (09:48)
[2022-08-20] MEDS: PIOGLITAZONE 15MG TABLET PO SCH (09:48)
[2022-08-20] MEDS: FAMOTIDINE 20MG TABLET PO SCH (09:49)
[2022-08-20] MEDS: LOSARTAN POTASSIUM 50 MG TABLET PO SCH (09:49)
[2022-08-20] MEDS: CEFTRIAXONE 1,000 MG in DEXTROSE 5% WATER 50 ML IV SCH (10:00)
[2022-08-20 10:49] LABS: PLATELET ESTIMATE NORMAL
[2022-08-20 14:59] LABS: BG BASE EXCESS 16.8 mmol/L (-2.0-2.0); BG CARBOXYHEMOGLOBIN 0.4 % (0.5-1.5); BG DEOXYHEMOGLOBIN 11.3 % (0.0-5.0); BG FRACTION INSPIRED OXYGEN 32; BG HCO3 ACT 42.4 mmol/L (22.0-26.0); BG METHEMOGLOBIN 0.1 % (0.0-1.5); BG OXYGEN SATURATION 88.6 % (92.0-98.5); BG OXYHEMOGLOBIN 88.2 % (94.0-97.0); BG PH 7.497 (7.350-7.450); BG PO2 54.1 mmHg (75.0-100.0); BG SAMPLE SITE RIGHT RADIAL; BG VENT MODE NASAL CANNULA
[2022-08-20] MEDS: AZITHROMYCIN 500MG/250ML 250 ML IV SCH (15:29)
[2022-08-20] MEDS ORDERED: DEXTROSE 50% WATER 50ML SYRINGE IV PRN (15:30)
[2022-08-20] MEDS ORDERED: NALOXONE HCL 0.4MG/ML VIAL IV PRN (16:30)
[2022-08-20] MEDS: ATORVASTATIN CALCIUM 40MG TABLET PO SCH (22:03)
[2022-08-21] VITALS (13 sets, daily range): BP systolic 110–147; BP diastolic 54–81
[2022-08-21] MEDS: METHYLPREDNISOLONE SOD SUCC 40 MG/ML VIAL IV SCH ×5 (00:36→23:20)
[2022-08-21] MEDS: IPRATROPIUM BROMIDE (0.02%) 0.5MG/2.5ML NEB HHN SCH ×4 (01:51→21:35)
[2022-08-21] MEDS: ALBUTEROL (0.083%) 2.5MG/3ML NEB HHN SCH ×4 (01:51→21:36)
[2022-08-21] MEDS: BUDESONIDE 0.5MG/2ML NEB HHN SCH ×3 (01:51→21:36)
[2022-08-21] MEDS: ENOXAPARIN 30MG/0.3ML SYR SUBCUT SCH ×2 (05:13→18:03)
[2022-08-21 07:22] LABS: HEMATOCRIT. 30.7 % (42.0-52.0); HEMOGLOBIN. 9.5 g/dL (14.0-18.0); MEAN CORPUSCULAR HEMOGLOBIN 22.5 pg (28.0-32.0); MEAN CORPUSCULAR VOLUME 72.4 fL (80.0-94.0); MEAN PLATELET VOLUME 7.1 fl (7.4-10.4); PLATELET 259 x1000/uL (130-400); RED BLOOD CELL COUNT 4.25 mill/uL (4.7-6.1)
[2022-08-21] MEDS: BLOOD SUGAR DIAGNOSTIC STRIP TEST SCH ×4 (07:48→20:45)
[2022-08-21] MEDS: AMLODIPINE 10MG TABLET PO SCH (08:06)
[2022-08-21] MEDS: LOSARTAN POTASSIUM 100 MG TABLET PO SCH (08:06)
[2022-08-21] MEDS: PIOGLITAZONE 15MG TABLET PO SCH (08:07)
[2022-08-21] MEDS: ASPIRIN 81MG TABLET PO SCH (08:07)
[2022-08-21] MEDS: FAMOTIDINE 20MG TABLET PO SCH (08:07)
[2022-08-21] MEDS: INSULIN LISPRO 100 UNITS/ML SUBCUT SCH ×4 (08:11→20:53)
[2022-08-21 08:38] LABS: CHLORIDE 93 mEq/L (98-107)
[2022-08-21 08:59] LABS: PHOSPHORUS 3.5 mg/dL (2.5-4.9)
[2022-08-21] MEDS ORDERED: POTASSIUM CHLORIDE 20MEQ TABLET SR PO NR (10:15)
[2022-08-21] MEDS ORDERED: DEXTROSE 50% WATER 50ML SYRINGE IV PRN (10:15)
[2022-08-21] MEDS: DOCUSATE SODIUM 100MG CAPSULE PO SCH (10:40)
[2022-08-21] MEDS: CEFTRIAXONE 1,000 MG in DEXTROSE 5% WATER 50 ML IV SCH (10:40)
[2022-08-21] MEDS: AZITHROMYCIN 500MG in DEXTROSE 5% WATER 250ML IV SCH (13:43)
[2022-08-21 14:37] LABS: PLATELET ESTIMATE NORMAL
[2022-08-21] MEDS: HYDROCODONE/ACETAMINOPHEN 5/325MG TABLET PO PRN (16:07)
[2022-08-21] MEDS: GUAIFENESIN 600MG ER TABLET PO SCH (20:34)
[2022-08-21] MEDS: ATORVASTATIN CALCIUM 40MG TABLET PO SCH (20:34)
[2022-08-22] VITALS (12 sets, daily range): BP systolic 106–148; BP diastolic 48–99
[2022-08-22] MEDS: ALBUTEROL (0.083%) 2.5MG/3ML NEB HHN SCH ×4 (02:51→19:55)
[2022-08-22] MEDS: IPRATROPIUM BROMIDE (0.02%) 0.5MG/2.5ML NEB HHN SCH ×4 (02:51→19:55)
[2022-08-22] MEDS: ENOXAPARIN 30MG/0.3ML SYR SUBCUT SCH ×2 (05:11→18:40)
[2022-08-22] MEDS: METHYLPREDNISOLONE SOD SUCC 40 MG/ML VIAL IV SCH ×3 (05:11→22:22)
[2022-08-22 06:21] LABS: HEMATOCRIT. 30.7 % (42.0-52.0); HEMOGLOBIN. 9.3 g/dL (14.0-18.0); MEAN CORPUSCULAR VOLUME 72.6 fL (80.0-94.0); MEAN PLATELET VOLUME 7.2 fl (7.4-10.4); PLATELET 252 x1000/uL (130-400); RED BLOOD CELL COUNT 4.23 mill/uL (4.7-6.1); RED CELL DISTRIBUTION WIDTH 20.6 % (11.6-14.6)
[2022-08-22] MEDS: BLOOD SUGAR DIAGNOSTIC STRIP TEST SCH ×4 (07:30→21:00)
[2022-08-22] MEDS: PIOGLITAZONE 15MG TABLET PO SCH (09:00)
[2022-08-22] MEDS: ASPIRIN 81MG TABLET PO SCH (09:00)
[2022-08-22] MEDS: DOCUSATE SODIUM 100MG CAPSULE PO SCH (09:01)
[2022-08-22] MEDS: FAMOTIDINE 20MG TABLET PO SCH (09:01)
[2022-08-22] MEDS: AMLODIPINE 10MG TABLET PO SCH (09:01)
[2022-08-22] MEDS: GUAIFENESIN 600MG ER TABLET PO SCH ×2 (09:01→22:10)
[2022-08-22] MEDS: LOSARTAN POTASSIUM 100 MG TABLET PO SCH (09:01)
[2022-08-22] MEDS: INSULIN LISPRO 100 UNITS/ML SUBCUT SCH ×4 (09:02→18:41)
[2022-08-22] MEDS: BUDESONIDE 0.5MG/2ML NEB HHN SCH (09:06)
[2022-08-22] MEDS: CEFTRIAXONE 1,000 MG in DEXTROSE 5% WATER 50 ML IV SCH (11:13)
[2022-08-22 11:18] LABS: CHLORIDE 94 mEq/L (98-107)
[2022-08-22 11:33] LABS: PLATELET ESTIMATE NORMAL
[2022-08-22 11:47] LABS: PHOSPHORUS 3.7 mg/dL (2.5-4.9)
[2022-08-22] MEDS ORDERED: POTASSIUM CHLORIDE 20MEQ TABLET SR PO SCH (14:00)
[2022-08-22] MEDS: AZITHROMYCIN 500MG in DEXTROSE 5% WATER 250ML IV SCH (15:33)
[2022-08-22] MEDS: BUDESONIDE 0.5MG/2ML NEB HHN PRN (19:54)
[2022-08-22] MEDS: ATORVASTATIN CALCIUM 40MG TABLET PO SCH (22:10)
[2022-08-22] MEDS: INSULIN GLARGINE 100 UNITS/ML SUBCUT SCH (22:12)
[2022-08-22] MEDS: HYDROCODONE/ACETAMINOPHEN 5/325MG TABLET PO PRN (22:14)
[2022-08-23] VITALS (12 sets, daily range): BP systolic 114–148; BP diastolic 58–83
[2022-08-23] MEDS: IPRATROPIUM BROMIDE (0.02%) 0.5MG/2.5ML NEB HHN SCH ×4 (02:05→20:46)
[2022-08-23] MEDS: ALBUTEROL (0.083%) 2.5MG/3ML NEB HHN SCH ×4 (02:05→20:46)
[2022-08-23] MEDS: ENOXAPARIN 30MG/0.3ML SYR SUBCUT SCH ×2 (05:18→17:33)
[2022-08-23 07:31] LABS: HEMATOCRIT. 32.3 % (42.0-52.0); HEMOGLOBIN. 9.8 g/dL (14.0-18.0); MEAN CORPUSCULAR HEMOGLOBIN 22.2 pg (28.0-32.0); MEAN CORPUSCULAR VOLUME 73.5 fL (80.0-94.0); MEAN PLATELET VOLUME 7.3 fl (7.4-10.4); PLATELET 239 x1000/uL (130-400); RED BLOOD CELL COUNT 4.39 mill/uL (4.7-6.1); RED CELL DISTRIBUTION WIDTH 20.4 % (11.6-14.6)
[2022-08-23 07:53] LABS: CHLORIDE 98 mEq/L (98-107)
[2022-08-23] MEDS: BLOOD SUGAR DIAGNOSTIC STRIP TEST SCH ×4 (07:58→21:00)
[2022-08-23] MEDS: INSULIN LISPRO 100 UNITS/ML SUBCUT SCH ×3 (08:05→17:34)
[2022-08-23] MEDS: LOSARTAN POTASSIUM 100 MG TABLET PO SCH ×2 (09:00→09:54)
[2022-08-23] MEDS: AMLODIPINE 10MG TABLET PO SCH (09:00)
[2022-08-23] MEDS: ASPIRIN 81MG TABLET PO SCH (09:54)
[2022-08-23] MEDS: GUAIFENESIN 600MG ER TABLET PO SCH ×2 (09:54→21:59)
[2022-08-23] MEDS: METHYLPREDNISOLONE SOD SUCC 40 MG/ML VIAL IV SCH ×2 (09:54→21:59)
[2022-08-23] MEDS: PIOGLITAZONE 15MG TABLET PO SCH (09:54)
[2022-08-23] MEDS: FAMOTIDINE 20MG TABLET PO SCH (09:54)
[2022-08-23] MEDS: DOCUSATE SODIUM 100MG CAPSULE PO SCH (09:54)
[2022-08-23] MEDS: BUDESONIDE 0.5MG/2ML NEB HHN PRN ×2 (10:47→20:46)
[2022-08-23] MEDS: CEFTRIAXONE 1,000 MG in DEXTROSE 5% WATER 50 ML IV SCH (12:04)
[2022-08-23 19:01] LABS: PLATELET ESTIMATE NORMAL
[2022-08-23] MEDS: ATORVASTATIN CALCIUM 40MG TABLET PO SCH (22:00)
[2022-08-23] MEDS: IBUPROFEN 400MG TABLET PO PRN (22:01)
[2022-08-23] MEDS: INSULIN GLARGINE 100 UNITS/ML SUBCUT SCH (22:03)
[2022-08-24] VITALS (13 sets, daily range): BP systolic 100–153; BP diastolic 56–84
[2022-08-24] MEDS: ALBUTEROL (0.083%) 2.5MG/3ML NEB HHN SCH ×2 (03:04→09:00)
[2022-08-24] MEDS: IPRATROPIUM BROMIDE (0.02%) 0.5MG/2.5ML NEB HHN SCH ×2 (03:04→09:00)
[2022-08-24 04:36] LABS: HEMATOCRIT. 30.9 % (42.0-52.0); HEMOGLOBIN. 9.7 g/dL (14.0-18.0); MEAN CORPUSCULAR HEMOGLOBIN 22.4 pg (28.0-32.0); MEAN CORPUSCULAR VOLUME 71.9 fL (80.0-94.0); MEAN PLATELET VOLUME 6.8 fl (7.4-10.4); PLATELET 246 x1000/uL (130-400); RED CELL DISTRIBUTION WIDTH 20.9 % (11.6-14.6)
[2022-08-24 04:52] LABS: CHLORIDE 98 mEq/L (98-107)
[2022-08-24 05:25] LABS: PLATELET ESTIMATE NORMAL
[2022-08-24] MEDS: ENOXAPARIN 30MG/0.3ML SYR SUBCUT SCH ×2 (05:59→18:38)
[2022-08-24] MEDS: BLOOD SUGAR DIAGNOSTIC STRIP TEST SCH ×4 (07:30→21:27)
[2022-08-24] MEDS: BUDESONIDE 0.5MG/2ML NEB HHN PRN (09:00)
[2022-08-24] MEDS: LOSARTAN POTASSIUM 100 MG TABLET PO SCH (10:02)
[2022-08-24] MEDS: PIOGLITAZONE 15MG TABLET PO SCH (10:02)
[2022-08-24] MEDS: GUAIFENESIN 600MG ER TABLET PO SCH ×2 (10:02→21:25)
[2022-08-24] MEDS: AMLODIPINE 10MG TABLET PO SCH (10:05)
[2022-08-24] MEDS: DOCUSATE SODIUM 100MG CAPSULE PO SCH (10:06)
[2022-08-24] MEDS: ASPIRIN 81MG TABLET PO SCH (10:06)
[2022-08-24] MEDS: FAMOTIDINE 20MG TABLET PO SCH (10:06)
[2022-08-24] MEDS: METHYLPREDNISOLONE SOD SUCC 40 MG/ML VIAL IV SCH (10:06)
[2022-08-24] MEDS: INSULIN LISPRO 100 UNITS/ML SUBCUT SCH ×3 (10:17→17:30)
[2022-08-24] MEDS: CEFTRIAXONE 1,000 MG in DEXTROSE 5% WATER 50 ML IV SCH (12:17)
[2022-08-24] MEDS: IBUPROFEN 400MG TABLET PO PRN (18:38)
[2022-08-24] MEDS ORDERED: HYDRALAZINE HCL 50MG TABLET PO SCH (21:00)
[2022-08-24] MEDS: ATORVASTATIN CALCIUM 40MG TABLET PO SCH (21:26)
[2022-08-24] MEDS ORDERED: INSULIN GLARGINE 100 UNITS/ML SUBCUT SCH (22:00)
[2022-08-25] MEDS ORDERED: METHYLPREDNISOLONE SOD SUCC 40 MG/ML VIAL IV SCH (09:00)
== END 2022-08-24 23:00 | disposition home or self-care (01) | DRG 208 ==
LOC: ER 06:56 → EDBEDREQ 09:50 → 5EST 15:46
PROVIDERS: ADMIT Internal Medicine; ATTEND Internal Medicine
PROC: 5A1935Z Respiratory Ventilation, Less than 24 Consecutive Hours (ICD-10-PCS; 2022-08-23)
PROC: 5A09357 Assistance with Respiratory Ventilation, Less than 24 Consecutive Hours, Continuous Positive Airway Pressure (ICD-10-PCS; principal; 2022-08-24)
DX: J96.21 Acute and chronic respiratory failure with hypoxia (principal); I26.99 Other pulmonary embolism without acute cor pulmonale; J44.1 Chronic obstructive pulmonary disease with (acute) exacerbation; C34.91 Malignant neoplasm of unspecified part of right bronchus or lung; E87.4 Mixed disorder of acid-base balance; I50.30 Unspecified diastolic (congestive) heart failure; E44.1 Mild protein-calorie malnutrition; L97.919 Non-pressure chronic ulcer of unspecified part of right lower leg with unspecified severity; C79.40 Secondary malignant neoplasm of unspecified part of nervous system; E66.2 Morbid (severe) obesity with alveolar hypoventilation; J96.22 Acute and chronic respiratory failure with hypercapnia; I65.21 Occlusion and stenosis of right carotid artery; D50.9 Iron deficiency anemia, unspecified; D72.829 Elevated white blood cell count, unspecified; E11.622 Type 2 diabetes mellitus with other skin ulcer; E83.42 Hypomagnesemia; E66.9 Obesity, unspecified; E87.6 Hypokalemia; E88.09 Other disorders of plasma-protein metabolism, not elsewhere classified; I11.0 Hypertensive heart disease with heart failure; I25.10 Atherosclerotic heart disease of native coronary artery without angina pectoris; D49.1 Neoplasm of unspecified behavior of respiratory system; T50.2X5A Adverse effect of carbonic-anhydrase inhibitors, benzothiadiazides and other diuretics, initial encounter; E11.51 Type 2 diabetes mellitus with diabetic peripheral angiopathy without gangrene; I83.009 Varicose veins of unspecified lower extremity with ulcer of unspecified site; Z68.34 Body mass index [BMI] 34.0-34.9, adult; Z86.73 Personal history of transient ischemic attack (TIA), and cerebral infarction without residual deficits; Z99.81 Dependence on supplemental oxygen; Z85.118 Personal history of other malignant neoplasm of bronchus and lung; Z87.891 Personal history of nicotine dependence; Z82.49 Family history of ischemic heart disease and other diseases of the circulatory system; Z79.899 Other long term (current) drug therapy; Z79.84 Long term (current) use of oral hypoglycemic drugs; Z79.82 Long term (current) use of aspirin; Z79.4 Long term (current) use of insulin
CPT/HCPCS: 36415; 36600; 71045; 71250; 80048; 80053; 80061; 82306; 82375; 82607; 82746; 82805; 82962; 83036; 83540; 83550; 83605; 83735; 83880; 84100; 84145; 84439; 84443; 84481; 84484; 85025; 85379; 93005; 93970; 94640; 94644; 94660; 97162; 99291; A6261; C1893; J0456; J0696; J1650; J1815; J1940; J2920; J2930; J3475; J3480; J7060; J7626